=== PATIENT | male | born 1995 | race Two or more races ===

== ENCOUNTER 2018-08-21 23:24 | Emergency (ER) | payer OTHER ==
[2018-08-21 23:38] VITALS: BP 164/83
--- NOTE | 2018-08-22 00:21 | ED Physician Documentation ---
PD HPI SKIN - Stated complaint Stated Complaint: MALE /MASS - Chief complaint Chief Complaint: General - History obtained from History obtained from: Patient - History of Present Illness Timing - onset: How many days ago (4) Timing - duration: Days (4) Timing - details: Gradual onset, Still present Location: LLE Quality / character: Raised, Swelling Contributing factors: Other (ingrown hair) Similar symptoms before: Has not had sx before Recently seen: Not recently seen - Additional information Additional information: 23-year-old male has what appears to be an ingrown hair in his left groin. He had symptoms started on 4 days ago and he is now feeling a hard lump under the skin and it is not particularly tender the redness seems to have receded. Review of Systems Constitutional: denies: Fever Respiratory: denies: Dyspnea GI: denies: Vomiting Skin: reports: Lesions Musculoskeletal: denies: Neck pain, Back pain, Extremity pain PD PAST MEDICAL HISTORY - Past Medical History Past Medical History: Yes Other Past Medical History: hernia - Past Surgical History Past Surgical History: Yes HEENT: Other - Present Medications Home Medications: Ambulatory Orders Medication Instructions Recorded Confirmed Fluticasone [Flonase] 08/21/18 Sulfamethoxazole/Trimethoprim 1 each PO BID #10 tablet 08/22/18 [Sulfamethoxazole-Tmp Ds Tablet] - Allergies Allergies/Adverse Reactions: Allergies Allergy/AdvReac Type Severity Reaction Status Date / Time No Known Drug Allergies Allergy Verified 08/21/18 23:38 - Social History Does the pt smoke?: No Smoking Status: Never smoker Does the pt drink ETOH?: Yes Does the pt have substance abuse?: No Substance Use and Type: Marijuana - Immunizations Immunizations are current?: Yes - POLST Patient has POLST: No PD ED PE NORMAL - Vitals Vital signs reviewed: Yes (hypertensive ) - General General: Alert and oriented X 3, No acute distress, Well developed/nourished - HEENT HEENT: Atraumatic, PERRL, EOMI - Respiratory Respiratory: No respiratory distress - Derm Derm: Normal color, Warm and dry - Extremities Extremities: No deformity, Other (in the inguinal crease is an area about 1cm round with a smaller mass under the skin consistent with a developing sebaceous cyst. The amont of inflamation is minimal and there is no fluctuance. ) - Neuro Neuro: Alert and oriented X 3, artificial stone setter 2-12 intact, No motor deficit, No sensory deficit, Normal speech Eye Opening: Spontaneous Motor: Obeys Commands Verbal: Oriented GCS Score: 15 - Psych Psych: Normal mood, Normal affect Results - Vitals Vitals: Vital Signs - 24 hr 08/21/18 23:26 Temperature 36.8 C Heart Rate 82 Respiratory 16 Rate Blood Pressure 164/83 H O2 Saturation 100 Oxygen O2 Source Room air PD MEDICAL DECISION MAKING - ED course Complexity details: considered differential, d/w patient ED course: 23-year-old male has developed what appears to be an ingrown hair that appears to walled itself off well. We will place him on some Septra for several days and expect either resolution or development of a sebaceous cyst. I discussed these findings with the patient and reasons to return to the emergency department. Departure - Departure Disposition: 01 Home, Self Care Clinical Impression: Ingrown hair Instructions: ED Cyst Sebaceous Follow-Up: SANDY RIZO [Primary Care Provider] - Prescriptions: Sulfamethoxazole/Trimethoprim [Sulfamethoxazole-Tmp Ds Tablet] 1 each PO BID #10 tablet
== END 2018-08-22 00:32 | disposition home or self-care (01) ==
LOC: ED 23:24
DX: L73.1 Pseudofolliculitis barbae (principal)
CPT/HCPCS: 99283